=== PATIENT | female | born 1975 | race African-American/Black ===

== ENCOUNTER 2016-11-25 10:39 | Emergency (ER) | payer SELFPAY ==
[~2016-11-25] VITALS: Ht 167.6 cm; Wt 63.5 kg
[2016-11-25] MEDS ORDERED: diphenhydrAMINE HCL 50 MG/ML VIAL IV ONE (11:00)
[2016-11-25] MEDS ORDERED: IV NS 0.9% 1,000 ML BAG IV ONE (11:00)
[2016-11-25] MEDS ORDERED: KETOROLAC TROMETHAMINE INJ 30 MG/ML VIAL IV ONE (11:00)
[2016-11-25] MEDS ORDERED: METOCLOPRAMIDE HCL 10 MG/2 ML VIAL IV ONE (11:00)
[2016-11-25] MEDS ORDERED: IV NS 0.9% 1,000 ML ONE (11:07)
[2016-11-25] MEDS ORDERED: IV SET PRIMARY 1 EA INFUS.SET MC ONE (11:07)
[2016-11-25] MEDS ORDERED: METOCLOPRAMIDE HCL 10 MG/2 ML VIAL ONE (11:19)
[2016-11-25] MEDS ORDERED: diphenhydrAMINE HCL 50 MG/ML VIAL ONE (11:20)
[2016-11-25] MEDS ORDERED: KETOROLAC TROMETHAMINE INJ 30 MG/ML VIAL ONE (11:20)
[2016-11-25 12:19] VITALS: BP 128/88
== END 2016-11-25 12:20 | disposition home or self-care (01) ==
LOC: ER 10:41
DX: R51 Headache (principal)
CPT/HCPCS: 84703-TC; A4606; J1200; J1885; J2765; J7030; Z7610

== ENCOUNTER 2017-04-04 15:45 | Emergency (ER) | payer SELFPAY ==
[~2017-04-04] VITALS: Ht 167.6 cm; Wt 63.5 kg
--- NOTE | 2017-04-04 15:52 | NUR ---
SELF PRESENTS TO ED: NAUSEA, VOMITING, HEADACHE, NECK X1 DAY. AWAITING MD ORDER
[2017-04-04] MEDS ORDERED: diphenhydrAMINE HCL 50 MG/ML VIAL ONE (16:24)
[2017-04-04] MEDS ORDERED: METOCLOPRAMIDE HCL 10 MG/2 ML VIAL ONE (16:25)
[2017-04-04] MEDS ORDERED: KETOROLAC TROMETHAMINE INJ 30 MG/ML VIAL ONE (16:25)
[2017-04-04] MEDS ORDERED: ONDANSETRON HCL/PF 4 MG/2 ML VIAL ONE (16:25)
[2017-04-04] MEDS ORDERED: IV NS 0.9% 1,000 ML ONE (16:25)
[2017-04-04] MEDS ORDERED: IV SET PRIMARY 1 EA INFUS.SET MC ONE (16:25)
[2017-04-04] MEDS ORDERED: IV NS 0.9% 1,000 ML BAG IV ONE (16:30)
[2017-04-04] MEDS ORDERED: diphenhydrAMINE HCL 50 MG/ML VIAL IV ONE (16:30)
[2017-04-04] MEDS ORDERED: KETOROLAC TROMETHAMINE INJ 30 MG/ML VIAL IV ONE (16:30)
[2017-04-04] MEDS ORDERED: ONDANSETRON HCL/PF 4 MG/2 ML VIAL IV ONE (16:30)
[2017-04-04] MEDS ORDERED: METOCLOPRAMIDE HCL 10 MG/2 ML VIAL IV ONE (16:30)
[2017-04-04 16:33] LABS: BASOPHILS # (AUTO) 0.1 /CMM (0.0-0.2); BASOPHILS % (AUTO) 1.3 % (0.0-2.0); EOSINOPHILS # (AUTO) 0.1 /CMM (0.0-0.7); HEMATOCRIT 40 % (33-45); HEMOGLOBIN 13.1 g/dL (11.5-14.8); LYMPHOCYTES # (AUTO) 1.1 /CMM (0.8-4.8); LYMPHOCYTES % (AUTO) 16.4 % (20.0-44.0); MEAN CORPUSCULAR HEMOGLOBIN 30 PG (26.0-33.0); MEAN CORPUSCULAR HGB CONC 33 g/dl (31.0-36.0); MEAN CORPUSCULAR VOLUME 90 fL (82-100); MONOCYTES # (AUTO) 0.5 /CMM (0.1-1.30); MONOCYTES % (AUTO) 6.9 % (2.0-12.0); NEUTROPHILS % (AUTO) 74.4 % (43.0-81.0); PLATELET COUNT (AUTO) 358 /CMM (150-450); RDW COEFFICIENT OF VARIATION 14.3 (11.5-15.0); RED BLOOD CELL COUNT(AUTO) 4.42 MIL/uL (4.0-5.2); WHITE BLOOD COUNT (AUTO) 6.8 K/uL (4.3-11.0)
[2017-04-04 16:43] LABS: CALCIUM, SERUM 9.6 mg/dL (8.5-10.1); CREATININE 0.9 mg/dL (0.6-1.3); POTASSIUM 4.1 mmol/L (3.5-5.1)
[2017-04-04 17:30] VITALS: BP 147/85
--- NOTE | 2017-04-04 17:31 | NUR ---
IV removed. Catheter intact and site benign. Pressure and 4x4 applied to site. No bleeding noted.
--- NOTE | 2017-04-04 17:31 | NUR ---
Patient discharged to home in stable condition. Written and verbal after care instructions given. Patient verbalizes understanding of instruction.
== END 2017-04-04 17:31 | disposition home or self-care (01) ==
LOC: ER 15:47
DX: R11.2 Nausea with vomiting, unspecified (principal); R51 Headache
CPT/HCPCS: 36415; 80048-TC; 85025-TC; A4606; J1200; J1885; J2405; J2765; J7030; Z7610

== ENCOUNTER 2017-10-14 15:58 | Emergency (ER) | payer MEDICAID ==
[~2017-10-14] VITALS: Ht 167.6 cm; Wt 63.5 kg
[2017-10-14 16:09] VITALS: BP 138/88
[2017-10-14] MEDS ORDERED: ACETAMINOPHEN ES 500 MG TABLET PO ONE (16:30)
[2017-10-14] MEDS ORDERED: METOCLOPRAMIDE HCL 10 MG/2 ML VIAL IV ONE (16:30)
[2017-10-14] MEDS ORDERED: KETOROLAC TROMETHAMINE INJ 30 MG/ML VIAL IV ONE (16:30)
[2017-10-14 16:36] LABS: APPEARANCE,URINE Clear (CLEAR); BILIRUBIN,URINE Negative (NEGATIVE); BLOOD, URINE Negative Ery/uL (NEGATIVE); COLOR,URINE Yellow (YELLOW); KETONES,URINE Negative (NEGATIVE); LEUKOCYTE ESTERASE ,URINE Negative (NEGATIVE); NITRITE, URINE Negative (NEGATIVE); PROTEIN,URINE Negative (NEGATIVE); UGLUCOSE Negative (NEGATIVE); UROBILINOGEN,URINE 0.2 EU/dL (0.2)
[2017-10-14] MEDS ORDERED: METOCLOPRAMIDE HCL 10 MG/2 ML VIAL ONE (16:53)
[2017-10-14] MEDS ORDERED: KETOROLAC TROMETHAMINE INJ 30 MG/ML VIAL ONE (16:53)
[2017-10-14] MEDS ORDERED: ACETAMINOPHEN ES 500 MG TABLET ONE (16:54)
--- NOTE | 2017-10-14 17:42 | NUR ---
PT FEELING MUCH BETTER. D/C HOME W/ PRESCRIPTION. IVHL D/C'D. STABLE CONDITION.
== END 2017-10-14 17:46 | disposition home or self-care (01) ==
LOC: ER 16:00
DX: G43.909 Migraine, unspecified, not intractable, without status migrainosus (principal)
CPT/HCPCS: 81000-TC; 84703-TC; A4606; J1885; J2765; Z7610

== ENCOUNTER → 2018-06-30 | Emergency (ER) | payer MEDICAID ==
[~2018-06-30] VITALS: Ht 167.6 cm; Wt 63.5 kg
[2018-06-30 12:54] LABS: APPEARANCE,URINE Clear (CLEAR); BILIRUBIN,URINE Negative (NEGATIVE); BLOOD, URINE Negative Ery/uL (NEGATIVE); COLOR,URINE Yellow (YELLOW); KETONES,URINE Negative (NEGATIVE); LEUKOCYTE ESTERASE ,URINE Negative (NEGATIVE); NITRITE, URINE Negative (NEGATIVE); PH,URINE 5.5 (5.0-8.0); PROTEIN,URINE Negative (NEGATIVE); UGLUCOSE Negative (NEGATIVE); UROBILINOGEN,URINE 0.2 EU/dL (0.2)
--- NOTE | 2018-06-30 13:28 | NUR ---
Patient discharged to home in stable condition. Written and verbal after care instructions given. Patient verbalizes understanding of instruction.
[2018-06-30 13:29] VITALS: BP 132/70
== END | disposition home or self-care (01) ==
LOC: ER 12:07
DX: M54.5 Low back pain (principal); G43.909 Migraine, unspecified, not intractable, without status migrainosus
CPT/HCPCS: 81000-TC; 84703-TC; A4606; Z7610

== ENCOUNTER 2018-08-17 16:16 | Emergency (ER) | payer MEDICAID ==
[~2018-08-17] VITALS: Ht 162.6 cm; Wt 59.9 kg
[2018-08-17] MEDS ORDERED: IV NS 0.9% 1,000 ML BAG IV ONE (17:00)
[2018-08-17] MEDS ORDERED: KETOROLAC TROMETHAMINE INJ 30 MG/ML VIAL IV ONE (17:00)
[2018-08-17] MEDS ORDERED: METOCLOPRAMIDE HCL 10 MG/2 ML VIAL IV ONE (17:00)
[2018-08-17] MEDS ORDERED: diphenhydrAMINE HCL 50 MG/ML VIAL IV ONE (17:00)
[2018-08-17] MEDS ORDERED: diphenhydrAMINE HCL 50 MG/ML VIAL ONE (17:18)
[2018-08-17] MEDS ORDERED: METOCLOPRAMIDE HCL 10 MG/2 ML VIAL ONE (17:18)
[2018-08-17] MEDS ORDERED: KETOROLAC TROMETHAMINE 15 MG/ML VIAL ONE (17:18)
[2018-08-17 17:23] LABS: BASOPHILS # (AUTO) 0.2 /CMM (0.0-0.2); BASOPHILS % (AUTO) 2.2 % (0.0-2.0); EOSINOPHILS % (AUTO) 1.7 % (0.0-6.0); HEMATOCRIT 38 % (33-45); HEMOGLOBIN 12.8 g/dL (11.5-14.8); LYMPHOCYTES # (AUTO) 2.9 /CMM (0.8-4.8); LYMPHOCYTES % (AUTO) 39.3 % (20.0-44.0); MEAN CORPUSCULAR HGB CONC 34 g/dl (31.0-36.0); MEAN CORPUSCULAR VOLUME 90 fL (82-100); MONOCYTES # (AUTO) 0.6 /CMM (0.1-1.30); MONOCYTES % (AUTO) 8.2 % (2.0-12.0); NEUTROPHILS # (AUTO) 3.5 /CMM (1.8-8.9); NEUTROPHILS % (AUTO) 48.6 % (43.0-81.0); PLATELET COUNT (AUTO) 306 /CMM (150-450); RDW COEFFICIENT OF VARIATION 13.2 (11.5-15.0); RED BLOOD CELL COUNT(AUTO) 4.22 MIL/uL (4.0-5.2); WHITE BLOOD COUNT (AUTO) 7.3 K/uL (4.3-11.0)
[2018-08-17 18:10] LABS: POTASSIUM 4.2 mmol/L (3.5-5.1)
--- NOTE | 2018-08-17 18:40 | NUR ---
IV removed. Catheter intact and site benign. Pressure and 4x4 applied to site. No bleeding noted.
--- NOTE | 2018-08-17 18:41 | NUR ---
Patient discharged to home in stable condition. Written and verbal after care instructions given. Patient verbalizes understanding of instruction.
[2018-08-17 18:42] VITALS: BP 133/87
[2018-08-17 23:04] LABS: APPEARANCE,URINE SL CLOUDY (CLEAR); BILIRUBIN,URINE NEGATIVE (NEGATIVE); BLOOD, URINE NEGATIVE Ery/uL (NEGATIVE); COLOR,URINE YELLOW (YELLOW); KETONES,URINE TRACE (NEGATIVE); LEUKOCYTE ESTERASE ,URINE NEGATIVE (NEGATIVE); NITRITE, URINE NEGATIVE (NEGATIVE); PH,URINE 7.5 (5.0-8.0); PROTEIN,URINE NEGATIVE (NEGATIVE); UGLUCOSE NEGATIVE (NEGATIVE); UROBILINOGEN,URINE 0.2 EU/dL (0.2)
[2018-08-17 23:10] LABS: BACTERIA,URINE Few /HPF (None Seen); RBC,URINE 0-2 /HPF (0-2); SQUAMOUS EPITHELIAL CELL,UR Few /HPF (None Seen); URINE AMORPHOUS PHOSPHATES Moderate /HPF (None Seen); WBC,URINE 0-2 /HPF (0-3)
== END 2018-08-17 18:43 | disposition home or self-care (01) ==
LOC: ER 16:17
DX: G43.909 Migraine, unspecified, not intractable, without status migrainosus (principal)
CPT/HCPCS: 36415; 80048; 81001; 84703; 85025; 96374; 96375; 99284; A4606; J1200; J1885; J2765; J7030; Z7610; 81000-TC

== ENCOUNTER 2019-04-12 00:31 | Emergency (ER) | payer MEDICAID ==
[~2019-04-12] VITALS: Ht 167.6 cm; Wt 65.8 kg
--- NOTE | 2019-04-12 00:53 | NUR ---
BIBSELF FROM HOME. AAOX4. NAD, BREATHING EVEN AND UNLABORED. AMBULATORY. C/O MIGRAINE HEADACHE X 3 DAYS. PT STATES SHE TOOK EXEDRINE AND IBUPROHEN AT 4 PM W/O ANY RELIEF. PT REPORTS THAT LIGHT AGGREVATES THE HEADACHE. PT'S HEADACHE ON TEMPORAL AND FRONTAL PART OF THE HEAD. PT TO ER BED 1. LIGHTS DIMMED FOR COMFORT. AWAITING MD POWELL.
--- NOTE | 2019-04-12 02:09 | NUR ---
PT AMBULATED TO BATHROOM FOR URINE COLLECTION ON HER OWN WITH STEADY GAIT.
[2019-04-12] MEDS ORDERED: diphenhydrAMINE HCL 50 MG/ML VIAL ONE (02:11)
[2019-04-12] MEDS ORDERED: METOCLOPRAMIDE HCL 10 MG/2 ML VIAL ONE (02:11)
[2019-04-12] MEDS ORDERED: KETOROLAC TROMETHAMINE INJ 30 MG/ML VIAL ONE (02:11)
--- NOTE | 2019-04-12 02:15 | NUR ---
URINE SPECIMEN SENT TO LAB.
[2019-04-12 02:18] LABS: APPEARANCE,URINE CLEAR (CLEAR); BILIRUBIN,URINE NEGATIVE (NEGATIVE); BLOOD, URINE NEGATIVE Ery/uL (NEGATIVE); COLOR,URINE YELLOW (YELLOW); LEUKOCYTE ESTERASE ,URINE NEGATIVE (NEGATIVE); NITRITE, URINE NEGATIVE (NEGATIVE); PH,URINE 5.5 (5.0-8.0); PROTEIN,URINE NEGATIVE (NEGATIVE); UGLUCOSE NEGATIVE (NEGATIVE); UROBILINOGEN,URINE 0.2 EU/dL (0.2)
[2019-04-12 02:21] LABS: BACTERIA,URINE None seen /HPF (None Seen); KETONES,URINE TRACE (NEGATIVE); RBC,URINE 0-2 /HPF (0-2); SQUAMOUS EPITHELIAL CELL,UR Few /HPF (None Seen); WBC,URINE 0-2 /HPF (0-3)
[2019-04-12] MEDS ORDERED: diphenhydrAMINE HCL 50 MG/ML VIAL IV ONE (02:30)
[2019-04-12] MEDS ORDERED: KETOROLAC TROMETHAMINE INJ 30 MG/ML VIAL IV ONE (02:30)
[2019-04-12] MEDS ORDERED: IV NS 0.9% 1,000 ML BAG IV ONE (02:30)
[2019-04-12] MEDS ORDERED: METOCLOPRAMIDE HCL 10 MG/2 ML VIAL IV ONE (02:30)
[2019-04-12 03:43] VITALS: BP 114/77
--- NOTE | 2019-04-12 03:56 | NUR ---
Patient discharged to home in stable condition. Written and verbal after care instructions given. Patient verbalizes understanding of instruction.IV removed. Catheter intact and site benign. Pressure and 4x4 applied to site. No bleeding noted. Pt ambulatory with a steady gait
== END 2019-04-12 03:57 | disposition home or self-care (01) ==
LOC: ER 00:34
DX: G43.909 Migraine, unspecified, not intractable, without status migrainosus (principal)
CPT/HCPCS: 81001; 84703; 96374; 96375; 99283; J1200; J1885; J2765; J7030; 81000-TC

== ENCOUNTER 2020-10-02 00:35 | Emergency (ER) | payer MEDICAID ==
[~2020-10-02] VITALS: Ht 167.6 cm; Wt 65.8 kg
[2020-10-02 00:40] VITALS: BP 137/87
== END 2020-10-02 02:18 | disposition home or self-care (01) ==
LOC: ER 00:37
DX: H57.89 Other specified disorders of eye and adnexa (principal); G43.909 Migraine, unspecified, not intractable, without status migrainosus; Z02.89 Encounter for other administrative examinations

== ENCOUNTER 2021-07-16 19:34 | Emergency (ER) | payer MEDICAID, OTHER ==
[~2021-07-16] VITALS: Ht 167.6 cm; Wt 70.8 kg
[2021-07-16 20:12] VITALS: BP 139/89
[2021-07-16] MEDS ORDERED: SUMATRIPTAN SUCCINATE 6 MG/0.5 ML VIAL SQ ONE ×2 (21:13→21:30)
[2021-07-16] MEDS ORDERED: SUMA100T16 PO (21:28)
== END 2021-07-16 21:45 | disposition home or self-care (01) ==
LOC: ER 19:40
DX: G43.909 Migraine, unspecified, not intractable, without status migrainosus (principal); F17.200 Nicotine dependence, unspecified, uncomplicated; Z98.890 Other specified postprocedural states; Z79.899 Other long term (current) drug therapy
CPT/HCPCS: 96372; 99283; J3030

== ENCOUNTER 2021-09-01 12:22 | Emergency (ER) | payer OTHER ==
[~2021-09-01] VITALS: Ht 167.6 cm; Wt 65.8 kg
[~2021-09-01 12:22] MED LIST: SUMA100T16 PO
[2021-09-01] MEDS ORDERED: SUMATRIPTAN SUCCINATE 6 MG/0.5 ML VIAL SQ ONE ×2 (12:57→13:00)
[2021-09-01] MEDS ORDERED: SUMA100T16 PO (12:58)
[2021-09-01 13:43] VITALS: BP 124/72
--- NOTE | 2021-09-01 13:45 | NUR ---
Patient discharged to home in stable condition. Written and verbal after care instructions given. Patient verbalizes understanding of instruction.
== END 2021-09-01 13:40 | disposition home or self-care (01) ==
LOC: ER 12:25
DX: G43.909 Migraine, unspecified, not intractable, without status migrainosus (principal); F17.200 Nicotine dependence, unspecified, uncomplicated; Z98.890 Other specified postprocedural states
CPT/HCPCS: 96372; 99283; J3030

== ENCOUNTER 2024-04-17 19:43 | Emergency (ER) | payer OTHER ==
[~2024-04-17] VITALS: Ht 172.7 cm; Wt 70.3 kg
[2024-04-17 20:12] VITALS: BP 158/91
[2024-04-17] MEDS ORDERED: HYDR-4209 PO (20:34)
[2024-04-17] MEDS ORDERED: ACET-2605 PO (20:34)
[2024-04-17 20:42] VITALS: O2SAT 98
== END 2024-04-17 20:43 | disposition home or self-care (01) ==
LOC: ER 19:49
DX: M79.642 Pain in left hand (principal); G43.909 Migraine, unspecified, not intractable, without status migrainosus; F17.200 Nicotine dependence, unspecified, uncomplicated; Z98.890 Other specified postprocedural states; Z79.899 Other long term (current) drug therapy

== ENCOUNTER 2025-02-17 00:59 | Emergency (ER) | payer OTHER ==
[~2025-02-17] VITALS: Ht 167.6 cm; Wt 81.6 kg
[~2025-02-17 00:59] MED LIST changes: +ACET-2605 PO; +HYDR-4209 PO
[2025-02-17] MEDS ORDERED: GABA-532 PO (06:20)
[2025-02-17] MEDS ORDERED: HYDROMORPHONE 1 MG/1 ML DISP.SYRIN ONE (06:34)
[2025-02-17] MEDS ORDERED: ONDANSETRON 4 MG TAB.RAPDIS ONE (06:35)
[2025-02-17] MEDS: HYDROMORPHONE 1 MG/1 ML DISP.SYRIN IM ONE (06:45)
[2025-02-17] MEDS: ONDANSETRON 4 MG TAB.RAPDIS PO ONE (06:45)
[2025-02-17] MEDS ORDERED: HYDR-4303 PO (09:33)
[2025-02-17 09:51] VITALS: BP 121/81; TEMP 98.2; O2SAT 98
== END 2025-02-17 09:51 | disposition home or self-care (01) ==
LOC: ER 01:01
DX: M79.621 Pain in right upper arm (principal); F17.200 Nicotine dependence, unspecified, uncomplicated; Z79.899 Other long term (current) drug therapy
CPT/HCPCS: 99285; 72125; 93971; 96372; J1171; Q0162

== ENCOUNTER 2025-08-08 17:46 | Emergency (ER) | payer OTHER ==
[~2025-08-08] VITALS: Ht 167.6 cm; Wt 86.2 kg
[~2025-08-08 17:46] MED LIST changes: +GABA-532 PO; +HYDR-4303 PO
[2025-08-08 19:15] LABS: PLATELET COUNT (AUTO) 316 K/uL (150-450); RED BLOOD CELL COUNT(AUTO) 4.95 MIL/uL (4.0-5.2); RED CELL DISTRIBUTION WIDTH 14.7 % (11.5-15.0); WHITE BLOOD COUNT (AUTO) 8.1 K/uL (4.3-11.0)
[2025-08-08 19:20] LABS: CALCIUM, SERUM 9.2 mg/dL (8.5-10.1); CREATININE 0.9 mg/dL (0.6-1.3); SODIUM SERUM 137.0 mmol/L (136-145); UREA NITROGEN, BLOOD 12.0 mg/dL (7-18)
[2025-08-08 19:20] LABS: APPEARANCE,URINE CLEAR (CLEAR); BLOOD, URINE NEGATIVE Ery/uL (NEGATIVE); LEUKOCYTE ESTERASE ,URINE NEGATIVE (NEGATIVE); NITRITE, URINE NEGATIVE (NEGATIVE); UGLUCOSE NEGATIVE (NEGATIVE)
[2025-08-08 19:23] LABS: ADD URINE CULTURE NO; PREGNANCY TEST URINE QUAL NEGATIVE (NEGATIVE); SQUAMOUS EPITHELIAL CELL,UR 0-2 /HPF (None Seen)
[2025-08-08 19:26] LABS: ASPARTATE AMINOTRANSFERASE 24.0 U/L (15-37); TOTAL PROTEIN, SERUM 7.5 g/dL (6.4-8.2)
[2025-08-08] MEDS ORDERED: TRIA60LO8 TP (19:31)
[2025-08-08] MEDS ORDERED: ONDA4TAB11 PO (19:35)
[2025-08-08] MEDS ORDERED: KETOROLAC TROMETHAMINE INJ 30 MG/ML VIAL ONE (19:48)
[2025-08-08] MEDS: KETOROLAC TROMETHAMINE INJ 30 MG/ML VIAL IM ONE (19:52)
[2025-08-08 20:07] VITALS: BP 135/80; TEMP 98; O2SAT 99
[2025-08-09] MEDS ORDERED: ONDA4TAB11 PO (17:14)
[2025-08-09] MEDS ORDERED: TRIA60LO8 TP (17:14)
== END 2025-08-08 20:10 | disposition home or self-care (01) ==
LOC: ER 17:46
DX: S40.861A Insect bite (nonvenomous) of right upper arm, initial encounter (principal); S40.862A Insect bite (nonvenomous) of left upper arm, initial encounter; S80.861A Insect bite (nonvenomous), right lower leg, initial encounter; S80.862A Insect bite (nonvenomous), left lower leg, initial encounter; G43.909 Migraine, unspecified, not intractable, without status migrainosus; R11.2 Nausea with vomiting, unspecified; R19.7 Diarrhea, unspecified; F17.200 Nicotine dependence, unspecified, uncomplicated; Z79.899 Other long term (current) drug therapy; Z87.42 Personal history of other diseases of the female genital tract; W57.XXXA Bitten or stung by nonvenomous insect and other nonvenomous arthropods, initial encounter; Y93.89 Activity, other specified; Y92.89 Other specified places as the place of occurrence of the external cause; Y99.8 Other external cause status
CPT/HCPCS: 99283; 96372; 85025; 80048; 87086; 83690; 80076; 84703; 81001; 36415; J1885; Q0177